=== PATIENT | female | born 1995 | race Caucasian/White ===

== ENCOUNTER 2023-10-22 12:46 | Outpatient (CLI) | payer MEDICAID, SELFPAY ==
[2023-10-22 13:53] LABS: Basophils % 0.4 % (0.1-2.0); Eosinophils # 0.2 K/mm3 (0.0-0.4); Eosinophils % 2.2 % (0.1-12.0); Hematocrit 41.1 % (37.0-47.0); Lymphocytes % 25.4 % (10-50); Mean Corpuscular HGB Conc 31.7 g/dL (31.8-35.4); Mean Corpuscular Hemoglobin 25.2 pg (27.0-31.2); Mean Corpuscular Volume 79.7 fl (81-99); Mean Platelet Volume 7.5 fl (7.4-10.4); Monocytes # 0.4 K/mm3 (0.1-1.0); Monocytes % 5.5 % (1.7-9.3); Neutrophils # 5.2 K/mm3 (1.8-7.8); Neutrophils % 66.6 % (37.0-80.0); Platelet Count 423 K/mm3 (142-424); Red Blood Count 5.16 M/mm3 (4.20-5.40); Red Cell Distribution Width 14.1 % (11.5-17.5); White Blood Count 7.9 K/mm3 (4.8-10.8)
[2023-10-22 14:04] LABS: Chloride 102 mmol/L (98-107)
[2023-10-22 14:05] LABS: Potassium 3.9 mmoL/L (3.5-5.1); Sodium 138 mmol/L (136-145)
[2023-10-22 14:07] LABS: Alanine Aminotransferase 30 U/L (12-78); Anion Gap 10.9 mEq/L (5-15); Aspartate Amino Transferase 35 U/L (14-36); Blood Urea Nitrogen 12 mg/dl (7-17); Carbon Dioxide 29 mmol/L (22.0-30.0); Estimated Glomerular Filt Rate 84 ml/min (>60); GFR (African American) 102 ML/MIN (>60)
[2023-10-22 14:08] LABS: Albumin Level 3.8 g/dl (3.5-5.0); Albumin/Globulin Ratio 1.1 (1.1-1.8); Alkaline Phosphatase 105 U/L (38-126); Bilirubin,Total 0.4 mg/dl (0.2-1.3); Chol/HDL Ratio 3.7 (1-3.5); Cholesterol 169 mg/dl (140-200); Globulin 3.4 g/dL (1.3-3.2); Glucose 97 mg/dl (74-100); HDL Cholesterol 46 mg/dl (40-60); Total Protein,Serum 7.2 g/dl (6.3-8.2); Triglycerides 108 mg/dl (30-150); VLDL Cholesterol 22 mg/dL (0-40)
[2023-10-22 14:19] LABS: Direct LDL Cholesterol 94.43 mg/dL (100-129)
[2023-10-22 14:38] LABS: 25-OH Vitamin D, Total 23.1 ng/mL (30-100)
[2023-10-22 14:55] LABS: Triiodothryronine (T3) Uptake 32 % (23.5-40.5)
[2023-10-22 14:56] LABS: Free Thyroxine Index 3.5 ug/dL (5.93-13.13); T4 (Thyroxine) 10.9 ug/dl (5.53-11.0)
[2023-10-22 14:58] LABS: Vitamin B12 930 pg/mL (239-931)
[2023-10-22 15:09] LABS: Thyroid Stimulating Hormone 0.72 uIU/mL (0.465-4.68)
== END 2023-10-22 23:59 ==
LOC: LAB.DROPOF 12:47
PROVIDERS: PCP Family Medicine; Visit Provider Family Medicine
DX: R53.83 Other fatigue (principal); F32.9 Major depressive disorder, single episode, unspecified; F90.9 Attention-deficit hyperactivity disorder, unspecified type; E55.9 Vitamin D deficiency, unspecified; E66.9 Obesity, unspecified; Z68.42 Body mass index [BMI] 45.0-49.9, adult; Z79.899 Other long term (current) drug therapy
CPT/HCPCS: 80053; 80061; 82306; 82607; 84436; 84443; 84479; 85025

== ENCOUNTER 2024-07-28 13:31 | Outpatient (CLI) | payer MEDICAID, SELFPAY ==
[2024-07-28 19:10] LABS: Anion Gap 13.1 mEq/L (5-15); Blood Urea Nitrogen 11 mg/dl (7-17); Calcium 8.9 mg/dl (8.4-10.2); Carbon Dioxide 30 mmol/L (22.0-30.0); Chloride 103 mmol/L (98-107); Estimated Glomerular Filt Rate 98 ml/min (>60); GFR (African American) 119 ML/MIN (>60); Glucose 86 mg/dl (74-100); Potassium 4.1 mmoL/L (3.5-5.1); Sodium 142 mmol/L (136-145)
[2024-07-28 19:27] LABS: Free T4 (Free Thyroxine) 0.91 ng/dl (0.78-2.19)
[2024-07-28 19:38] LABS: Thyroid Stimulating Hormone 2.95 uIU/mL (0.465-4.68)
[2024-07-28 19:48] LABS: Hemoglobin A1C 5.3 % (4.0-6.0)
== END 2024-07-28 23:59 | disposition home or self-care (01) ==
LOC: LAB.DROPOF 07-29 13:32
PROVIDERS: PCP Nurse Practitioner Acute Care; Visit Provider Nurse Practitioner Acute Care
DX: R63.5 Abnormal weight gain (principal); Z68.43 Body mass index [BMI] 50.0-59.9, adult
CPT/HCPCS: 80048; 83036; 84439; 84443